=== PATIENT | male | born 1945 | race Caucasian/White ===

== ENCOUNTER 2017-07-20 20:10 | Emergency (ER) | payer OTHER, BC ==
[~2017-07-20] VITALS: Ht 177.8 cm; Wt 103.5 kg
[~2017-07-20 20:10] MED LIST: ADULT LOW DOSE81 M1; AZOR 5/20 MG1 TABLET PO; CELEBREX200 MG; CRESTOR20 MG; LANSOPRAZOLE30 MG; ZYRTEC10 M3
[2017-07-20 22:10] VITALS: BP 134/94
== END 2017-07-20 22:16 | disposition home or self-care (01) ==
LOC: EME 20:10
DX: K59.00 Constipation, unspecified (principal); G89.29 Other chronic pain; E78.5 Hyperlipidemia, unspecified; I10 Essential (primary) hypertension; Z87.891 Personal history of nicotine dependence
CPT/HCPCS: 74018; 99281; 99284

== ENCOUNTER 2017-09-21 08:13 | Emergency (ER) | payer OTHER, BC ==
[~2017-09-21] VITALS: Ht 177.8 cm; Wt 99.9 kg
[2017-09-21] MEDS ORDERED: KEFLEX500 MG PO (08:29)
[2017-09-21 08:46] VITALS: BP 146/80
== END 2017-09-21 08:49 | disposition home or self-care (01) ==
LOC: EME 08:13
DX: L02.214 Cutaneous abscess of groin (principal); L03.314 Cellulitis of groin
CPT/HCPCS: 99281; 99284